=== PATIENT | female | born 1955 | race Caucasian/White ===

== ENCOUNTER 2017-04-09 06:28 | Day surgery (SDC) | payer BC ==
[~2017-04-09 06:28] MED LIST: Sodium Chloride 0.9% 10 ML Syringe FLUSH PRN; Sodium Chloride 0.9% 2.5 ML Syringe FLUSH PRN; ceFAZolin 1 GM in Premix Bag 1 BAG IV ONE
--- NOTE | 2017-04-09 07:25 | PCM.PREANE ---
Preanesthetic Assessment - Anesthesia/Transfusion/Family Hx Anesthesia History: Prior Anesthesia Without Reaction Family History of Anesthesia Reaction: No Transfusion History: No Prior Transfusion(s) Intubation History: Unknown - Review of Systems General: No Symptoms Pulmonary: No Symptoms Cardiovascular: No Symptoms Gastrointestinal: No Symptoms Neurological: No Symptoms Other: Reports: None - Physical Assessment O2 Sat by Pulse Oximetry: 99 Respiratory Rate: 16 Vital Signs: Last Vital Signs Temp 36.5 C 04/09/17 06:57 Pulse 84 04/09/17 06:57 Resp 16 04/09/17 06:57 BP 130/62 04/09/17 06:57 Pulse Ox 99 04/09/17 06:57 Height: 1.65 m Weight: 69.4 kg ASA Class: 2 Mental Status: Alert & Oriented x3 Airway Class: Mallampati = 2 Dentition: Reports: Normal Dentition Thyro-Mental Finger Breadths: 2 Mouth Opening Finger Breadths: 3 ROM/Head Extension: Full Lungs: Clear to Auscultation, Normal Respiratory Effort Cardiovascular: Regular Rate, Regular Rhythm - Allergies Allergies/Adverse Reactions: Allergies Allergy/AdvReac Type Severity Reaction Status Date / Time propoxyphene [From Darvon] Allergy Dizziness Verified 04/09/17 06:48 Sulfa (Sulfonamide Allergy Rash Verified 04/09/17 06:48 Antibiotics) - Blood Blood Available: No - Anesthesia Plan Pre-Op Medication Ordered: None - Acknowledgements Anesthesia Type Planned: General Anesthesia Pt an Appropriate Candidate for the Planned Anesthesia: Yes Alternatives and Risks of Anesthesia Discussed w Pt/Guardian: Yes Pt/Guardian Understands and Agrees with Anesthesia Plan: Yes PreAnesthesia Questionnaire HEENT History: Reports: Cataract Other HEENT History: wears glasses Gastrointestinal History: Reports: GERD Genitourinary History: Reports: Renal Calculus THERAPEUTIC RECREATION DIRECTOR History: Reports: , Spontaneous Musculoskeletal History: Reports: Fibromyalgia Other Musculoskeletal History: osteopenia, hx of fx right ankle Endocrine/Metabolic History: Reports: Hypothyroidism - Past Surgical History HEENT Surgical History: Reports: Cataract Surgery, Retinal, Tonsillectomy Other HEENT Surgeries/Procedures: retinal repair-right eye Respiratory Surgical History: Reports: Lung Biopsies Other Respiratory Surgeries/Procedures: non-malignant nodule removed from lung GI Surgical History: Reports: Colonoscopy Female Surgical History: Reports: Lithotripsy/ESWL - SUBSTANCE USE Smoking Status *Q: Never Smoker Recreational Drug Use History: No - HOME MEDS Home Medications: Home Meds Amitriptyline [Elavil] 10 mg PO BEDTIME 04/05/17 [History] Cholecalciferol (Vitamin D3) [Vitamin D3] 2,000 unit PO BID 04/05/17 [History] Estradiol [Yuvafem] 10 mcg VAG ASDIRECTED 04/05/17 [History] Levothyroxine [Synthroid] 50 mcg PO QAM 04/05/17 [History] Mv-Min/Iron/Folic/Calcium/Vitk [Women's Daily Formula Tablet] 1 tab PO DAILY 07/18 [History] Pantoprazole Sodium [Protonix] 40 mg PO Q48H 04/05/17 [History] Red Yeast Rice 1 cap PO DAILY 04/05/17 [History] - CURRENT (IN HOUSE) MEDS Current Meds: Current Medications Sodium Chloride (Saline Flush) 10 ml FLUSH ASDIRECTED PRN PRN Reason: Keep Vein Open Sodium Chloride (Saline Flush) 2.5 ml FLUSH ASDIRECTED PRN PRN Reason: Keep Vein Open Discontinued Medications Cefazolin Sodium/Dextrose 1 gm (/ Premix) 50 mls @ 100 mls/hr IV ONETIME ONE Stop: 04/09/17 05:29
[2017-04-09] MEDS ORDERED: Rocuronium 10 MG/ML 10 ML Syringe ONE (07:54)
[2017-04-09] MEDS ORDERED: Propofol 200 MG/20 ML SDV ONE (07:54)
[2017-04-09] MEDS ORDERED: Ondansetron 4 MG/2 ML SDV ONE (07:54)
[2017-04-09] MEDS ORDERED: Midazolam 1 MG/ML 2 ML SDV ONE (07:54)
[2017-04-09] MEDS ORDERED: diphenhydrAMINE 50 MG/ML SDV ONE (07:54)
[2017-04-09] MEDS ORDERED: Dexamethasone 4 MG/ML 5 ML MDV ONE (07:54)
[2017-04-09] MEDS ORDERED: fentaNYL 250 MCG/5 ML SDV ONE (07:54)
[2017-04-09 08:18] LABS: CHLORIDE,CL 108 mmol/L (98-110); SODIUM,NA 142 mmol/L (136-146)
[2017-04-09] MEDS ORDERED: HYDROmorphone 2 MG/ML SDV ONE (10:17)
[2017-04-09] MEDS ORDERED: Fluorescein 5 ML Vial ONE (10:19)
[2017-04-09] MEDS ORDERED: Furosemide 40 MG/4 ML VIAL ONE (10:19)
[2017-04-09] MEDS ORDERED: fentaNYL 100 MCG/2 ML SDV IVPUSH PRN (11:02)
[2017-04-09] MEDS ORDERED: HYDROmorphone 2 MG/ML Syringe IVPUSH ONE (11:03)
[2017-04-09] MEDS ORDERED: Neostigmine Methylsulfate 1 MG/ML 5 ML Syringe ONE (11:33)
[2017-04-09] MEDS ORDERED: Aluminum Hydroxide/Magnesium Hydroxide/Simethicone Susp 30 ML Cup PO PRN (11:50)
[2017-04-09] MEDS ORDERED: Ketorolac 30 MG/ML SDV IVPUSH PRN (11:50)
[2017-04-09] MEDS ORDERED: Ketorolac 30 MG/ML SDV IVPUSH ONE (11:50)
[2017-04-09] MEDS ORDERED: Ondansetron 4 MG/2 ML SDV IVPUSH PRN (11:50)
[2017-04-09] MEDS ORDERED: Acetaminophen/oxyCODONE 325-5 MG Tab PO PRN ×2 (11:50)
[2017-04-09] MEDS ORDERED: Morphine 2 MG/ML Syringe IVPUSH PRN (11:50)
[2017-04-09] MEDS ORDERED: Morphine 4 MG/ML Syringe IVPUSH PRN (11:50)
[2017-04-09] MEDS ORDERED: Belladonna Alkaloids/Opium 16.2-30 MG Supp RECTAL PRN (11:53)
--- NOTE | 2017-04-09 12:03 | PCM.OPNOTE ---
- General Post-Op/Procedure Note Date of Surgery/Procedure: 04/09/17 Operative Procedure(s): TVH/BSO/A&P repair/cystoscopy Findings: 8 week uterus, normal appearing tubes/ovaries, bilateral patent ureters Pre Op Diagnosis: Incomplete uterovaginal prolapse Post-Op Diagnosis: Same Anesthesia Technique: General ET Tube Primary Surgeon: Yolanda Pan Assistant Center Director: Yamilet Liu Pathology: uterus, tubes, ovaries, vaginal mucosa Fluid Replacement, Intraop: 2,700 EBL in mLs: 350 Complications: none known Condition: Good Free Text/Narrative:: Intake & Output 04/08/17 04/09/17 04/09/17 22:59 06:59 14:59 Output Total 475 Balance -475 Dictation [id number]
[2017-04-09] MEDS: Dextrose 5%-0.45% NaCl 1,000 ML IV SCH ×2 (14:31→22:45)
[2017-04-09] MEDS: Promethazine 25 MG/ML SDV IM PRN ×2 (15:04→22:45)
[2017-04-09] MEDS ORDERED: Scopolamine 1.5 MG Transdermal Patch TRDERM PRN (17:36)
--- NOTE | 2017-04-09 17:36 | PCM.SN ---
- Free Text/Narrative Note: patient has nausea but no emesis. Pain is well controlled. Explained procedure , intaop findings. Reviewed pictures at her request. Continue postoperative cares, add scopolamine patch and heating pad to regimen (discussed with anesthesia).
--- NOTE | 2017-04-09 20:44 | OR ---
SURGEON: Yolanda Pan M.D. DATE OF PROCEDURE: 04/09/2017 PREOPERATIVE DIAGNOSIS: Incomplete uterovaginal prolapse. POSTOPERATIVE DIAGNOSIS: Incomplete uterovaginal prolapse. PROCEDURE: 1. Total vaginal hysterectomy. 2. Bilateral salpingo-oophorectomy. 3. Anterior and posterior colporrhaphy with cystoscopy. PRIMARY SURGEON: Yolanda Pan M.D. SHELL WORKER: Yamilet Liu M.D. ANESTHESIA: General endotracheal anesthesia. FLUIDS: 2700 mL crystalloid. ESTIMATED BLOOD LOSS: 350 mL. FINDINGS: Approximately 8-week size uterus. Normal-appearing tubes and ovaries. Bilateral patent ureters with visualization with cystoscopy at the end of the case. INDICATIONS: Maria R is a 61-year-old postmenopausal female, who has had ongoing difficulties with pelvic organ prolapse. At this time, she would like to proceed with surgical intervention. Risks of procedure have been discussed and proper consent obtained. PROCEDURE IN DETAIL: The patient was taken to the operating room, where she underwent general endotracheal anesthesia and was placed in a modified dorsal lithotomy position and prepped and draped in the usual sterile fashion. SCDs to the lower extremities. Castro to gravity. She received Ancef prophylactically. Time-out was performed. A weighted speculum was placed in the vagina, anterior [place]. Cervix grasped with Henry clamp. The cervix was circumscribed with Bovie cautery. The anterior and posterior overlying mucosa was dissected away from the underlying peritoneum. The peritoneum was tented downwards posteriorly and entered sharply. A longer weighted speculum was replaced with the shorter anteriorly. Careful dissection was performed bluntly and sharply as the anterior cul-de-sac was entered. Jeanmarie now mobilized the bladder away from the operative field. Tiara clamps were utilized to secure the uterosacral ligament on either side. Pedicle was transected and suture ligated with 2-0 Vicryl. The remaining pedicles along either side of the uterus were able to be secured, transected, and suture ligated up to the level of the [id number] pedicle which was secured, transected, and suture ligated. Specimens were passed off to farm equipment technician to be sent to pathology. Photographs were taken as the patient had requested. The right fallopian tube and ovary were able to be identified, grasped with Osiris clamp, and the infundibulopelvic ligament was able to be secured with Tiara clamp x2, transected, and suture ligated with suture x2. Similar fashion was performed on the patient's right side. A small pedicle of tissue that was still adherent was able to be grasped with a LigaSure, transected, and suture ligated. We inspected the pedicles closely. There was an area of bleeding along the right IFP that was secured with a suture. Hemostasis was thereafter evident. Remainder of the pedicles appeared hemostatic. The vaginal apex on either side was secured to the uterosacral ligament on either side in order to help prevent enterocele to form in the future. The culdoplasty was performed posteriorly beginning at the left uterosacral ligament, reefing the posterior peritoneum, and incorporating the right uterosacral ligament. In the same fashion was performed one step more cephalad using the right uterosacral ligament, reefing the posterior peritoneum, and exiting through the left uterosacral ligament. These will be tied down at the end of the case in order to help with visualization for the remainder of the case. Attention was now turned to performing the anterior repair. The midline anterior vaginal mucosa was grasped on either side with Allis clamps. The region was hydrodissected and then a sagittal midline vaginal mucosal incision was created using Metzenbaum scissors. The edges of the mucosa were grasped on either side with serial Allis clamps. The overlying mucosa was dissected sharply and bluntly from the muscularis tissue until stronger muscularis tissue was able to be identified on either side. The stronger muscularis tissue was now plicated using 2-0 Vicryl with inverted mattress suture technique. The excess mucosa was trimmed, and the mucosa was closed using 0 Vicryl in a continuous running locked fashion down the level of the cuff. Posteriorly, the posterior defect was able to be identified. The Allis clamps were secured on either side of the introitus at 5 and 7 o'clock. An inverted-V wedge section of tissue was able to be excised using a #15 blade scalpel in order to help perform perineorrhaphy. In the midline posterior mucosa, hydrodissection was performed. The Metzenbaum scissor was now utilized to create a sagittal midline incision. The edges of the mucosa were now grasped in a serial fashion with Allis clamps, and overlying mucosa was dissected from underlying muscularis in a similar fashion to the anterior. The stronger muscularis tissue was able to be identified laterally on each side and re-plicated using 2-0 Vicryl with inverted mattress suture technique. There was 1 perforating vessel bleeding along the left side, secured with a suture, and hemostasis was thereafter evident. Excess vaginal mucosa was now trimmed. The perineorrhaphy was repaired using 2- 0 Vicryl bringing together the subcutaneous tissue within and closing the skin in a subcuticular fashion. The remainder of the cuff was now closed using 0 Vicryl in a continuous running locked fashion after tying down the Valverde culdoplasty 2 sutures which did occlude the cul-de-sac nicely. These sutures were trimmed as the cuff continued to be closed. The Anesthesia delivered IV fluorescein and Lasix. The cuff was now inspected and was found to be hemostatic. Castro catheter was removed after the balloon was desufflated. The cystoscope was introduced using normal saline as distention media. Able to visualize dome of the bladder, followed by the trigone. The right ureteral orifice followed by the left ureteral orifice was able to be visualized. Fluorescein dyed urine was seen streaming from them helping to ensure ureteral patency. The cystoscope was removed. The bladder was drained. Castro catheter was replaced. The vaginal cuff was once again inspected and found to be hemostatic. The vaginal cuff was now packed with a packing coated with [place]. Packing was trimmed. The patient tolerated the procedure well. She will go to PACU in stable condition. Sponge and needle count was correct x2. Specimens to pathology. Once again, we took photographs of the uterus and tubes and ovaries per the patient request. MARY KAY / THEO /[id number]
[2017-04-09] MEDS: Docusate Sodium 100 MG Cap PO SCH (23:16)
--- NOTE | 2017-04-10 02:37 | PCM48HPAN ---
Post Anesthesia Note - EVALUATION WITHIN 48HRS OF ANESTHETIC Vital Signs in Normal Range: Yes Patient Participated in Evaluation: Yes Respiratory Function Stable: Yes Airway Patent: Yes Cardiovascular Function Stable: Yes Hydration Status Stable: Yes Pain Control Satisfactory: Yes Nausea and Vomiting Control Satisfactory: No (sleeping now but had nausea phenergan and scop patch given) Mental Status Recovered: Yes
[2017-04-10] MEDS: Promethazine 25 MG/ML SDV IM PRN (05:07)
[2017-04-10 05:55] LABS: CHLORIDE,CL 106 mmol/L (98-110); SODIUM,NA 139 mmol/L (136-146)
[2017-04-10] MEDS: Dextrose 5%-0.45% NaCl 1,000 ML IV SCH (07:11)
[2017-04-10] MEDS: Docusate Sodium 100 MG Cap PO SCH (09:04)
--- NOTE | 2017-04-10 09:06 | PCM.SURGPN ---
- General Info Date of Service: 04/10/17 POD#: 1 Functional Status: Reports: Pain Controlled, Tolerating Diet, Ambulating - Review of Systems General: Denies: Fever, Weakness Pulmonary: Denies: Shortness of Breath Cardiovascular: Denies: Chest Pain, Palpitations, Lightheadedness Gastrointestinal: Reports: Nausea (improved this am, ate breakfast). Denies: Diarrhea Genitourinary: Denies: Flank Pain Psychiatric: Reports: No Symptoms - Patient Data Vitals - Most Recent: Last Vital Signs Temp 37.2 C 04/10/17 08:00 Pulse 98 04/10/17 08:00 Resp 18 04/10/17 08:00 BP 150/73 H 04/10/17 08:00 Pulse Ox 96 04/10/17 08:00 Weight - Most Recent: 69.4 kg I&O - Last 24 Hours: Intake & Output 04/09/17 04/10/17 04/10/17 22:59 06:59 14:59 Intake Total 389 1825 Output Total 550 1900 Balance -161 -75 Lab Results Last 24 Hrs: Laboratory Results - last 24 hr 04/09/17 04/10/17 04/10/17 Range/Units 07:12 04:52 04:52 WBC 11.62 H (4.0-11.0) K/uL RBC 4.01 L (4.30-5.90) M/uL Hgb 12.2 (12.0-16.0) g/dL Hct 35.4 L (36.0-46.0) % MCV 88.3 (80.0-98.0) fL MCH 30.4 (27.0-32.0) pg MCHC 34.5 (31.0-37.0) g/dL RDW Std Deviation 44.4 (28.0-62.0) fl RDW Coeff of Mendez 14 (11.0-15.0) % Plt Count 279 (150-400) K/uL MPV 10.40 (7.40-12.00) fL Neut % (Auto) 79.8 (48.0-80.0) % Lymph % (Auto) 12.3 L (16.0-40.0) % [place] % (Auto) 7.9 (0.0-15.0) % Eos % (Auto) 0.0 (0.0-7.0) % Baso % (Auto) 0.0 (0.0-1.5) % Neut # (Auto) 9.3 H (1.4-5.7) K/uL Lymph # (Auto) 1.4 (0.6-2.4) K/uL [place] # (Auto) 0.9 H (0.0-0.8) K/uL Eos # (Auto) 0.0 (0.0-0.7) K/uL Baso # (Auto) 0.0 (0.0-0.1) K/uL Nucleated RBC % 0.0 /100WBC Nucleated RBCs # 0 K/uL Sodium 139 (136-146) mmol/L Potassium 3.4 L (3.5-5.1) mmol/L Chloride 106 (98-110) mmol/L Carbon Dioxide 24 (21-31) mmol/L BUN 7 (6.0-23.0) mg/dL Creatinine 0.7 (0.6-1.5) mg/dL Est Cr Clr Drug Dosing 74.98 mL/min Estimated GFR (MDRD) > 60.0 ml/min Glucose 115 H (60-110) mg/dL Calcium 8.4 L (8.8-10.8) mg/dL Blood Type A POSITIVE Antibody Screen NEGATIVE Med Orders - Current: Current Medications Al Hydroxide/Mg Hydroxide (Mag-Al Plus) 30 ml PO Q4H PRN PRN Reason: Indigestion Belladonna Alkaloids/Opium (B & O Supprettes No. 15a) 1 supp RECTAL Q4H PRN PRN Reason: Pain Docusate Sodium (Colace) 100 mg PO BID [facility] Last Admin: 04/09/17 23:16 Dose: 100 mg Fentanyl (Sublimaze) 50 mcg IVPUSH Q5M PRN PRN Reason: Pain (severe 7-10) Stop: 04/10/17 11:02 Dextrose/Sodium Chloride (Dextrose 5%-1/2 Ns) 1,000 mls @ 125 mls/hr IV ASDIRECTED [facility] Last Admin: 04/10/17 07:11 Dose: 125 mls/hr Ketorolac Tromethamine (Toradol) 30 mg IVPUSH Q6H PRN PRN Reason: Pain (severe 7-10) Stop: 04/14/17 11:50 Morphine Sulfate (Morphine) 2 mg IVPUSH Q2H PRN PRN Reason: Pain (severe 7-10) Morphine Sulfate (Morphine) 4 mg IVPUSH Q2H PRN PRN Reason: Pain (severe 7-10) Ondansetron HCl (Zofran) 4 mg IVPUSH Q6H PRN PRN Reason: Nausea/Vomiting Last Admin: 04/09/17 17:14 Dose: 4 mg Oxycodone/Acetaminophen (Percocet 325-5 Mg) 1 tab PO Q4H PRN PRN Reason: Pain (moderate 4-6) Oxycodone/Acetaminophen (Percocet 325-5 Mg) 2 tab PO Q4H PRN PRN Reason: Pain (moderate 4-6) Promethazine HCl (Phenergan) 25 mg IM Q6H PRN PRN Reason: Nausea/Vomiting Last Admin: 04/10/17 05:07 Dose: 25 mg Scopolamine (Transderm-Scop) 1.5 mg TRDERM Q72H PRN PRN Reason: Nausea Last Admin: 04/09/17 17:52 Dose: 1.5 mg Sodium Chloride (Saline Flush) 10 ml FLUSH ASDIRECTED PRN PRN Reason: Keep Vein Open Sodium Chloride (Saline Flush) 2.5 ml FLUSH ASDIRECTED PRN PRN Reason: Keep Vein Open Discontinued Medications Dexamethasone (Dexamethasone) Confirm Administered Dose 20 mg .ROUTE .STK-MED ONE Stop: 04/09/17 07:55 Diphenhydramine HCl (Benadryl) Confirm Administered Dose 50 mg .ROUTE .STK-MED ONE Stop: 04/09/17 07:55 Fentanyl (Sublimaze) Confirm Administered Dose 250 mcg .ROUTE .STK-MED ONE Stop: 04/09/17 07:55 Fluorescein Sodium (Ak-Fluor) Confirm Administered Dose 5 ml .ROUTE .STK-MED ONE Stop: 04/09/17 10:20 Furosemide (Lasix) Confirm Administered Dose 40 mg .ROUTE .STK-MED ONE Stop: 04/09/17 10:20 Glycopyrrolate () Confirm Administered Dose 1 mg .ROUTE .STK-MED ONE Stop: 04/09/17 11:34 Hydromorphone HCl (Dilaudid) Confirm Administered Dose 2 mg .ROUTE .STK-MED ONE Stop: 04/09/17 10:18 Hydromorphone HCl (Dilaudid) 0 mg IVPUSH ONETIME ONE Stop: 04/09/17 11:04 Last Admin: 04/09/17 14:24 Dose: Not Given Cefazolin Sodium/Dextrose 1 gm (/ Premix) 50 mls @ 100 mls/hr IV ONETIME ONE Stop: 04/09/17 05:29 Last Admin: 04/09/17 14:24 Dose: Not Given Acetaminophen (Ofirmev) Confirm Administered Dose 100 mls @ as directed IV .STK- MED ONE Stop: 04/09/17 07:56 Cefazolin Sodium/Dextrose (Ancef) Confirm Administered Dose 50 mls @ as directed .ROUTE .STK-MED ONE Stop: 04/09/17 09:55 Ketorolac Tromethamine (Toradol) 30 mg IVPUSH ONETIME ONE Stop: 04/09/17 11:51 Last Admin: 04/09/17 14:25 Dose: Not Given Midazolam HCl (Versed 1 Mg/Ml) Confirm Administered Dose 2 mg .ROUTE .STK-MED ONE Stop: 04/09/17 07:55 Neostigmine Methylsulfate (Neostigmine) Confirm Administered Dose 5 mg .ROUTE .STK-MED ONE Stop: 04/09/17 11:34 Ondansetron HCl (Zofran) Confirm Administered Dose 4 mg .ROUTE .STK-MED ONE Stop: 04/09/17 07:55 Propofol (Diprivan 20 Ml) Confirm Administered Dose 200 mg .ROUTE .STK-MED ONE Stop: 04/09/17 07:55 Rocuronium [place] (Zemuron) Confirm Administered Dose 100 mg .ROUTE .STK-MED ONE Stop: 04/09/17 07:55 - Exam General: Alert, Oriented Lungs: Normal Respiratory Effort Cardiovascular: Regular Rate, Regular Rhythm GI/Abdominal Exam: Soft, Non-Tender. No: Guarding, Rigid Extremities: No: Geovanny's Sign Psy/Mental Status: Alert, Normal Affect - Problem List & Annotations (1) Incomplete uterovaginal prolapse SNOMED Code(s): 599497740 Code(s): N81.2 - INCOMPLETE UTEROVAGINAL PROLAPSE Status: Acute Current Visit: Yes - Problem List Review Problem List Initiated/Reviewed/Updated: Yes - My Orders Last 24 Hours: Active Orders 24 hr Category Date Time Status Patient Status [ADT] Routine ADT 04/09/17 11:50 Active Antiembolic Devices [RC] Q4H Care 04/09/17 11:50 Active Notify Provider Intake and Out [RC] ASDIRECTED Care 04/09/17 11:50 Active Notify Provider Vital Signs [RC] ASDIRECTED Care 04/09/17 11:50 Active Oxygen Therapy [RC] ASDIRECTED Care 04/09/17 11:50 Active Pulse Oximetry [RC] PER UNIT ROUTINE Care 04/09/17 11:50 Active RT Incentive Spirometry [RC] Q2HWA Care 04/09/17 11:50 Active Up With Assistance [RC] PER UNIT ROUTINE Care 04/09/17 11:50 Active Up ad Eliza [RC] PER UNIT ROUTINE Care 04/09/17 11:50 Active Urinary Catheter Removal [RC] Per Unit Routine Care 04/09/17 11:50 Active Vital Signs [RC] Q4H Care 04/09/17 11:50 Active Regular Diet [DIET] Diet 04/09/17 Lunch Active Acetaminophen/oxyCODONE [Percocet 325-5 MG] Med 04/09/17 11:50 Active 1 tab PO Q4H PRN Acetaminophen/oxyCODONE [Percocet 325-5 MG] Med 04/09/17 11:50 Active 2 tab PO Q4H PRN Alum Hydrox/Mag Hydrox/Simeth [Mag-Al Plus] Med 04/09/17 11:50 Active 30 ml PO Q4H PRN Belladonna/Opium [B & O Supprettes No. 15A] Med 04/09/17 11:53 Active 1 supp RECTAL Q4H PRN Dextrose 5%-0.45% NaCl [Dextrose 5%-1/2 NS] 1,000 ml Med 04/09/17 12:00 Active IV ASDIRECTED Docusate Sodium [Colace] Med 04/09/17 21:00 Active 100 mg PO BID Ketorolac [Toradol] Med 04/09/17 11:50 Active 30 mg IVPUSH Q6H PRN Morphine Med 04/09/17 11:50 Active 2 mg IVPUSH Q2H PRN Morphine Med 04/09/17 11:50 Active 4 mg IVPUSH Q2H PRN Ondansetron [Zofran] Med 04/09/17 11:50 Active 4 mg IVPUSH Q6H PRN Promethazine [Phenergan] Med 04/09/17 11:50 Active 25 mg IM Q6H PRN Scopolamine [Transderm-Scop] Med 04/09/17 17:36 Active 1.5 mg TRDERM Q72H PRN fentaNYL [Sublimaze] Med 04/09/17 11:02 Active 50 mcg IVPUSH Q5M PRN Heat Therapy [OM.PC] Routine Oth 04/09/17 17:36 Ordered Peripheral IV Discontinue [OM.PC] Routine Oth 04/09/17 11:50 Ordered Sequential Compression Device [OM.PC] Per Unit Routine Oth 04/09/17 11:50 Ordered Resuscitation Status Routine Resus Stat 04/09/17 11:50 Ordered Medication Orders Al Hydroxide/Mg Hydroxide (Mag-Al Plus) 30 ml PO Q4H PRN PRN Reason: Indigestion Belladonna Alkaloids/Opium (B & O Supprettes No. 15a) 1 supp RECTAL Q4H PRN PRN Reason: Pain Docusate Sodium (Colace) 100 mg PO BID [facility] Last Admin: 04/09/17 23:16 Dose: 100 mg Fentanyl (Sublimaze) 50 mcg IVPUSH Q5M PRN PRN Reason: Pain (severe 7-10) Stop: 04/10/17 11:02 Dextrose/Sodium Chloride (Dextrose 5%-1/2 Ns) 1,000 mls @ 125 mls/hr IV ASDIRECTED [facility] Last Admin: 04/10/17 07:11 Dose: 125 mls/hr Infusion: 04/10/17 06:45 Dose: 125 mls/hr Admin: 04/09/17 22:45 Dose: 125 mls/hr Infusion: 04/09/17 22:31 Dose: 125 mls/hr Admin: 04/09/17 14:31 Dose: 125 mls/hr Ketorolac Tromethamine (Toradol) 30 mg IVPUSH Q6H PRN PRN Reason: Pain (severe 7-10) Stop: 04/14/17 11:50 Morphine Sulfate (Morphine) 2 mg IVPUSH Q2H PRN PRN Reason: Pain (severe 7-10) Morphine Sulfate (Morphine) 4 mg IVPUSH Q2H PRN PRN Reason: Pain (severe 7-10) Ondansetron HCl (Zofran) 4 mg IVPUSH Q6H PRN PRN Reason: Nausea/Vomiting Last Admin: 04/09/17 17:14 Dose: 4 mg Oxycodone/Acetaminophen (Percocet 325-5 Mg) 1 tab PO Q4H PRN PRN Reason: Pain (moderate 4-6) Oxycodone/Acetaminophen (Percocet 325-5 Mg) 2 tab PO Q4H PRN PRN Reason: Pain (moderate 4-6) Promethazine HCl (Phenergan) 25 mg IM Q6H PRN PRN Reason: Nausea/Vomiting Last Admin: 04/10/17 05:07 Dose: 25 mg Admin: 04/09/17 22:45 Dose: 25 mg Admin: 04/09/17 15:04 Dose: 25 mg Scopolamine (Transderm-Scop) 1.5 mg TRDERM Q72H PRN PRN Reason: Nausea Last Admin: 04/09/17 17:52 Dose: 1.5 mg Sodium Chloride (Saline Flush) 10 ml FLUSH ASDIRECTED PRN PRN Reason: Keep Vein Open Sodium Chloride (Saline Flush) 2.5 ml FLUSH ASDIRECTED PRN PRN Reason: Keep Vein Open - Assessment Assessment (Free Text/Narrative):: POD 1 status post TVH/BSO/A&P repair - Plan Plan (Free Text/Narrative):: Vaginal packing removed, fatima catheter removed. Ambulate this morning.Labs are reassuring. Once able to void, will allow discharge to home. Pain is well controlled, has not required any oral narcotic yet. Discharge instructions reviewed. Infection and bleeding warnings reviewed. Follow up at [facility] 2 and 6 weeks.
== END 2017-04-10 13:00 | disposition home or self-care (01) ==
LOC: MW.SDS 06:28 → MW.MS 11:50 → MW.SDS 04-10 13:00
PROVIDERS: ATTEND Obstetrics & Gynecology
DX: N81.2 Incomplete uterovaginal prolapse (principal); D25.1 Intramural leiomyoma of uterus; N72 Inflammatory disease of cervix uteri; R11.0 Nausea; K21.9 Gastro-esophageal reflux disease without esophagitis; E03.9 Hypothyroidism, unspecified; Z98.890 Other specified postprocedural states; Z79.899 Other long term (current) drug therapy; Z90.89 Acquired absence of other organs; Z87.442 Personal history of urinary calculi; Z88.2 Allergy status to sulfonamides; Z88.8 Allergy status to other drugs, medicaments and biological substances
CPT/HCPCS: 36415; 57200; 58262; 80048; 85025; 85027; 86850; 86900; 86901; A9270; J0690; J1100; J1170; J1200; J1885; J1940; J2250; J2405; J2550; J3010; J7042; 00940; 88307; J2704